=== PATIENT | female | born 1975 | race Two or more races ===

== ENCOUNTER 2021-07-26 10:42 | Emergency (ER) | payer OTHER ==
[~2021-07-26] VITALS: Ht 165.1 cm; Wt 88.9 kg
[2021-07-26] MEDS ORDERED: COZAAR100 MG PO (10:51)
== END 2021-07-26 19:46 | disposition home or self-care (01) ==
LOC: ER 10:42
DX: N93.8 Other specified abnormal uterine and vaginal bleeding (principal)